=== PATIENT | male | born 1980 | race American Indian/Alaskan Native ===

== ENCOUNTER 2017-04-16 07:36 | Emergency (ER) | payer BC ==
[2017-04-16 07:46] VITALS: BP 115/63
--- NOTE | 2017-04-16 08:38 | XRay Report ---
RIGHT HAND, 3 views: History: Right hand injury. The bony architecture is intact. Bony alignment is normal. No soft tissue abnormalities are seen. The joint spaces appear preserved. IMPRESSION: Normal right hand.
--- NOTE | 2017-04-16 12:10 | Emergency Department Report ---
Upper Extremity - [facility] Chief Complaint: Extremity Injury, Upper Stated Complaint: RIGHT HAND INJURY Time Seen by Provider: 04/16/17 12:09 Upper Extremity: Right Hand (patient reports right hand injury after slamming his right hand in a metal door. Reports pain), Right Middle Finger (pain and laceration), Right Ring Finger (pain and laceration) Occurred When: 1 Day Mechanism: Hit with Object Severity: severe (03/18) Symptoms: Yes Pain with Movement (right hand at ring and middle finger), Yes Bruising/Ecchymosis (right ring finger and middle finger), Yes Laceration or Abrasion (ring finger and middle finger), No Deformity, No Limited Range of Movement, No Numbness, No Weakness, No Swelling Other History: Patient he reports right hand injury after slamming his right hand in a metal door last night. He said he went to the Medical and was seen Was done and they told him that it wasn't fractured. He said he got a tetanus shot but he ended up leaving because he had a 1-year-old with him and he couldn' t wait. Patient said that they told him that he needs stitches so he came back today. He said he has laceration to his right middle and ring fingertip. Reports pain 10 out of 10 and throbbing. Better rest and worse with movement. Denies any redness. Denies any restriction in movement to right hand. Denies any fever or chills ED Review of Systems ROS: Stated complaint: RIGHT HAND INJURY Other details as noted in HPI Comment: All other systems reviewed and negative Constitutional: no symptoms reported Respiratory: no symptoms reported Cardiovascular: denies: chest pain, palpitations, dyspnea on exertion, edema, syncope, paroxysmal nocturnal dyspnea Gastrointestinal: denies: abdominal pain, nausea, vomiting, diarrhea, constipation Musculoskeletal: joint swelling, arthralgia. denies: back pain, myalgia Skin: denies: rash Neurological: denies: headache, numbness, paresthesias, confusion, abnormal gait , vertigo ED Past Medical Hx - Past Medical History Previous Medical History?: No - Surgical History Past Surgical History?: No - Family History Family history: no significant - Social History Smoking Status: Current Every Day Smoker Substance Use Type: Alcohol, Non Opiate Pain - Medications Home Medications: Home Medications Medication Instructions Recorded Confirmed Last Taken Type Acetaminophen/Codeine [Tylenol 1 tab PO Q6H PRN #12 tab 04/16/17 Unknown Rx /Codeine # 3 tab] Cephalexin [Keflex] 500 mg PO Q8HR #21 cap 04/16/17 Unknown Rx Ibuprofen [Motrin] 600 mg PO Q8H PRN #15 tablet 04/16/17 Unknown Rx Upper Extremity Exam - Exam General: Vital signs noted. No distress. Alert and acting appropriately. This is a 36-year-old male well-nourished well-developed in no acute distress. Head and Torso: No HEENT Abnormality, No Neck Tenderness, No Chest/Lungs Abnormality, No Abdominal Tenderness, No Back Tenderness Shoulder Exam: Yes Normal Range of Motion in Shoulder, No Shoulder Tenderness, No Clavicle Tenderness, No Shoulder Deformity, No AC Joint Tenderness Arm Exam: No Arm/Humerus Tenderness, No Arm Deformity Elbow: Yes Normal Range of Motion in Elbow, No Elbow Tenderness, No Elbow Deformity Forearm: No Forearm Tenderness, No Forearm Deformity, No Pain with Pronation, No Pain with Supination Wrist: Yes Normal ROM in Wrist, No Wrist Tenderness, No Wrist Deformity, No Snuffbox Tenderness, No Pain with Axial Thumb Compression Hand: Yes Digit Tenderness (right distal phalanx of middle and ring finger), Yes Normal ROM in Digit(s) (active range of motion but painful with movement of right hand to middle finger and ring finger), No Hand Tenderness, No Hand Deformity, No Digit(s) Deformity, No Tendon Dysfunction CMS Exam: Yes Broken Skin (patient with superficial laceration to right palmar aspect of middle and ring finger to right hand. No overt foreign body noted.), Yes Normal Distal Pulses, Yes Normal Capillary Refill (patient with subungual hematoma to right middle finger otherwise capillary refill to all of the fingers or normal), Yes Normal Distal Sensation ED Course Vital Signs 04/16/17 07:42 Temperature 98 F Pulse Rate 53 L Respiratory 16 Rate Blood Pressure 115/63 O2 Sat by Pulse 98 Oximetry - Reevaluation(s) Reevaluation #1: 04/16/17 13:50 Patient given Motrin 800 mg emergency room for pain to right hand after injury. Tetanus vaccine is up-to-date. I'd hand soaked and iodine and water and irrigated with saline. See procedure note for detail on subungual hematoma removal. - Procedure Description Procedures done: Procedure note: Patient with right middle finger subungual hematoma since last night. Right hand cleansed and arteritis used to release blood beneath nail. Patient tolerated procedure well. Wound care to the laceration sites right middle and ring finger. Neosporin ointment followed by dry sterile dressing. Unable to repair laceration due to time frame. Patient sustained injury greater than 16 hours and lacerations are very minimal and patient does not have any bony abnormality per x-ray. ED Medical Decision Making - Radiology Data Radiology results: report reviewed X-ray of right hand revealed no fracture or dislocation. - Medical Decision Making ED course: Patient with right hand injury sustained from accidental phlegm in metal door to his right hand. He has laceration to his right middle and ring finger at distal phalanx. He also has subungual hematoma to his right distal middle finger at nail. See procedure note for detail on procedure to release blood from nail. X-ray of right hand reveal no acute bony abnormalities. Patient given Motrin 800 mg by mouth in emergency room for pain. He reported that he receive his tetanus shot at the Medical last night. Patient here for laceration repair but I told him that his wounds are greater than 16 hours and I 'm unable to close wounds. Wounds are to his right distal phalanx middle and ring finger palmar side. Very superficial, irregular without any bleeding. Patient with minimal person at site. Wound cleansed extensively, Neosporin ointment placed the side and sterile dry dressing placed inside. I discussed the patient that he will need to follow up with his primary care physician in 2 days for which she does have a primary care physician and/or to return to emergency room if you develop increased redness, swelling, radiation of pain, decrease in movement and/or fever or chills. He was understanding of discharge diagnosis and treatment plan and discharged home a prescription for Motrin, Tylenol 3 and Keflex. Critical care attestation.: If time is entered above; I have spent that time in minutes in the direct care of this critically ill patient, excluding procedure time. ED Disposition Clinical Impression: Subungual hematoma of right middle finger, Arthralgia of right hand Laceration of finger of right hand with complication Qualifiers: Encounter type: initial encounter Qualified Code(s): S61.411A - Laceration without foreign body of right hand, initial encounter Contusion, fingers Qualifiers: Encounter type: initial encounter Finger: unspecified finger Damage to nail status: without damage Qualified Code(s): S60.00XA - Contusion of unspecified finger without damage to nail, initial encounter Injury of hand, right Qualifiers: Encounter type: initial encounter Qualified Code(s): S69.91XA - Unspecified injury of right wrist, hand and finger(s), initial encounter Disposition: [id number] TO HOME OR SELFCARE Is pt being admited?: No Does the pt Need Aspirin: No Condition: Stable Instructions: Subungual Hematoma (ED), Finger Laceration (ED), Contusion in Adults (ED), Arthralgia (ED), Acute Wound Care (ED) Additional Instructions: Please see discharge instruction on a daily wound care Take antibiotic as prescribed Follow-up with your primary care physician in 2 days Keep affected area clean and dry. Followed discharge instruction on acute wound care . Please return to emergency room if you develop increasing redness, streaking, fever, difficulty moving in and the left forearm and increase in pain. Prescriptions: Acetaminophen/Codeine [Tylenol /Codeine # 3 tab] 1 tab PO Q6H PRN #12 tab PRN Reason: Pain, Moderate (4-6) Cephalexin [Keflex] 500 mg PO Q8HR #21 cap Ibuprofen [Motrin] 600 mg PO Q8H PRN #15 tablet PRN Reason: Pain Referrals: TIANNA SELLERS MD [Staff Physician] - 04/18/17 PRIMARY CARE, [Primary Care Provider] - 04/18/17 Forms: Work/School Release Form(ED)
[2017-04-16] MEDS ORDERED: MOTRIN PO ONE (13:09)
[2017-04-16] MEDS ORDERED: TRIPLE ANTIBIOTIC TP ONE (13:09)
== END 2017-04-16 14:23 | disposition home or self-care (01) ==
LOC: ED 07:36
DX: S61.324A Laceration with foreign body of right ring finger with damage to nail, initial encounter (principal); S60.131A Contusion of right middle finger with damage to nail, initial encounter; F17.200 Nicotine dependence, unspecified, uncomplicated; S69.91XA Unspecified injury of right wrist, hand and finger(s), initial encounter; W23.1XXA Caught, crushed, jammed, or pinched between stationary objects, initial encounter; Y93.89 Activity, other specified; Y92.89 Other specified places as the place of occurrence of the external cause; Y99.8 Other external cause status
CPT/HCPCS: A6250